=== PATIENT | male | born 1950 | race Caucasian/White ===

== ENCOUNTER 2019-06-19 20:23 | Emergency (ER) | payer MEDICARE, OTHER, SELFPAY ==
[2019-06-19 20:30] VITALS: BP 153/85; PULSE 90; RESP 16; TEMP 36.6; O2SAT 95; BMI 27.0
--- NOTE | 2019-06-19 20:45 | PC.NURSE ---
Pt complaining of hiccups. Denies any chest pain, abd pain or any other symptoms. NAD. Will continue to monitor.
--- NOTE | 2019-06-19 20:51 | ED.ABDPAIN ---
HPI - Abdominal Pain General Chief Complaint: Abdominal Pain Stated Complaint: hiccups for 24hrs Time Seen by Provider: 06/19/19 20:51 Source: patient Mode of arrival: ambulatory Limitations: no limitations History of Present Illness HPI narrative: The patient is in the ER complaining of 24 hr of hiccups. He mimi are happening 7-10 per minute. He has no associated sore throat, chest pain, or history of GERD. He has no chronic GI issues. He has not experienced nausea, vomiting, diarrhea or constipation. His appetite has been normal. His oral intake has been normal. He has no urinary complaints. He has a prior history of our RIH repair. He has a prior history of hemorrhoid surgery. He has no other GI issues in the past. Related Data Home Medications Medication Instructions Recorded Confirmed olmesartan 40 mg tablet 20 mg PO DAILY tab 11/28/18 11/28/18 Testosterone 10 % TOP .COMPLEX 12/01/18 12/01/18 Previous Rx's Medication Instructions Recorded lorazepam [Ativan] 1 mg PO TID PRN #10 tab 06/20/19 pantoprazole [Protonix] 40 mg PO BEDTIME #30 each 06/20/19 Allergies Allergy/AdvReac Type Severity Reaction Status Date / Time Penicillins Allergy Intermediate Hives Verified 06/19/19 20:33 Review of Systems Review of Systems ROS Unobtainable: All systems reviewed & are unremarkable except as noted in HPI and below Constitutional Denies chills, Denies fever(s), Denies lethargy and Denies weakness ENT Ears, Nose, Mouth, and Throat: Denies dizziness, Denies mouth pain, Denies neck pain and Denies sore throat Cardiovascular Denies chest pain and Denies dyspnea Respiratory Denies cough and Denies dyspnea Gastrointestinal Gastrointestinal: Reports as per HPI, Denies abdominal pain, Denies constipation, Denies cramping, Denies dyspepsia, Denies heartburn and Denies diarrhea Genitourinary Denies dysuria Musculoskeletal Denies neck pain Integumentary/Breasts Denies rash Neurologic Denies dizziness and Denies weakness [facility] Medical History (Updated 06/20/19 @ 01:[address] MD) Asthma (Chronic ~1955) Hypertension (Chronic ~2009) Low testosterone (Chronic ~2010) Seasonal allergies (Chronic ~1955) Chicken pox (Resolved) Measles (Resolved) Mumps (Resolved) Surgical History (Updated 06/20/19 @ 01:[address] MD) History of right inguinal hernia repair (Acute) Anesthesia (Resolved) History of hemorrhoidectomy (Resolved ~2015) History of knee surgery (Resolved ~2014) Family History (Updated 12/28/18 @ 18:53 by Ese Rodriguez) Mother Heart disease Brother History of amputation Social History Smoking Status: Never smoker alcohol intake: current (Rare) Family History (Updated 12/28/18 @ 18:53 by Ese Rodriguez) Mother Heart disease Brother History of amputation Social History Smoking Status: Never smoker alcohol intake: current (Rare) Exam Initial Vital Signs Initial Vital Signs: Vital Signs Temperature 97.8 F 06/19/19 20:30 Pulse Rate 90 06/19/19 20:30 Respiratory Rate 16 06/19/19 20:30 Blood Pressure 153/85 H 06/19/19 20:30 Pulse Oximetry 95 06/19/19 20:30 Const General: cooperative and well developed Nutritional Appearance: well nourished Orientation: alert, awake and oriented x3 HENMT Head: normocephalic and atraumatic Mouth: oral mucosae normal Eyes Pupils: PERRL EOM: EOM intact bilaterally Neck Neck: No lymphadenopathy Resp Effort & Inspection: normal respiratory effort and able to speak in complete sentences Auscultation: clear to auscultation bilaterally Cardio Rate: regular rate Rhythm: regular rhythm Heart Sounds: S1 normal, S2 normal, no murmurs and no rubs Pulses: normal peripheral pulses GI Inspection: non-distended Palpation: soft, no hepatosplenomegaly, No guarding and No tender Auscultation: normal bowel sounds Other: Small umbilical hernia that will not reduce. Course Course Narrative: Abdominal CT showed a fatty umbilical hernia. No bowel incarceration/obstruction. The patient was given Ativan for the hiccups. He had about 90 min of rest without hiccups. He was given Maalox prior to discharge. My initial intent was to give him Ativan for as needed management who comes, after given him Reglan and Maalox. Once he was wake the comes return. I started over, given him IV Protonix. He is allowed to rest. After couple of hours the hiccups again resolved. He was then awake, waiting his to pick him up. He was given coffee. We just talked about decreasing coffee consumption. He generally drinks 2 cups in the morning. He once again developed hiccups, at the moment he was completing the coffee. I had him drink water as he is walking around, again diminishing the hiccups. He will be discharged on Protonix. Orders Ordered: ED Orders 06/19/19 21:43 CT abdomen pelvis w con Stat 06/19/19 22:05 Complete Blood Count AUTO DIFF Stat Comprehensive Metabolic Panel Stat Lipase Stat Discontinued Medications Al Hydrox/Mg Hydrox/Simethicone (Maalox Plus) 30 ml PO NOW ONE Stop: 06/20/19 01:30 Last Admin: 06/20/19 01:52 Dose: 30 ml Diphenhydramine HCl (Benadryl) 25 mg IV NOW ONE Stop: 06/19/19 21:43 Last Admin: 06/19/19 22:10 Dose: 25 mg Sodium Chloride (Normal Saline 0.9%) 1,000 mls @ 150 mls/hr IV CONT ELI Last Infusion: 06/20/19 03:59 Dose: 0 mls/hr Infusion: 06/20/19 03:56 Dose: 1,000 mls/hr Admin: 06/19/19 22:09 Dose: 150 mls/hr Lorazepam (Ativan) 2 mg IV NOW ONE Stop: 06/19/19 23:59 Last Admin: 06/20/19 00:17 Dose: 2 mg Metoclopramide HCl (Reglan) 10 mg IV NOW ONE Stop: 06/19/19 21:43 Last Admin: 06/19/19 22:10 Dose: 10 mg Pantoprazole Sodium (Protonix) 40 mg IV NOW ONE Stop: 06/20/19 02:12 Last Admin: 06/20/19 02:26 Dose: 40 mg Vital Signs - 8 hr 06/19/19 22:14 06/20/19 00:24 06/20/19 04:49 Pulse Rate 88 80 86 Respiratory Rate 18 20 16 Blood Pressure Blood Pressure [Right Arm] 142/77 H 142/77 H 148/75 H Pulse Oximetry 98 98 98 06/20/19 04:56 Pulse Rate 66 Respiratory Rate 14 Blood Pressure 136/77 Blood Pressure [Right Arm] Pulse Oximetry 98 MDM - Abdominal Pain Lab Data Attestation: I reviewed the patient's lab results. Result diagrams: 06/19/19 22:05 06/19/19 22:05 Lab Results 06/19/19 06/19/19 Range/Units 22:05 22:05 WBC 7.9 (4.5-11.0) X10^3/uL RBC 6.73 H (4.5-5.9) X10^6/uL Hgb 13.7 (13.5-17.5) g/dL Hct 44.6 (41-53) % MCV 66.3 L (80-100) fL MCH 20.4 L (26-34) PG MCHC 30.7 (30-36) % RDW 19.6 H (11.6-14.8) % Plt Count 265 (150-400) X10^3/uL Neut % (Auto) 55.3 (50-75) % Lymph % (Auto) 29.2 (25-40) % Nuckolls % (Auto) 9.5 (3-14) % Eos % (Auto) 5.3 H (2-4) % Baso % (Auto) 0.7 (0-2) % Neut # (Auto) 4300 (5584-8095) /uL Lymph # (Auto) 2300 (5444-2055) /uL [place]olls # (Auto) 700 (0-900) /uL Eos # (Auto) 400 (0-450) /uL Baso # (Auto) 100 (0-100) /uL RBC Morphology See below Anisocytosis 2+ H Microcytosis 2+ H Sodium 138 (137-145) mmol/L Potassium 3.9 (3.4-5.1) mmol/L Chloride 103 (98-107) mmol/L Carbon Dioxide 28 (22-32) mmol/L BUN 11 (9-20) mg/dL Creatinine 1.10 (0.66-1.25) mg/dL Estimated GFR > 60.0 (>60) mL/min BUN/Creatinine Ratio 10.0 (6-22) Glucose 86 (80-110) mg/dL Calcium 10.4 H (8.4-10.2) mg/dL Total Bilirubin 0.4 (0.2-1.3) mg/dL AST 37 (17-59) IU/L ALT 51 (21-72) IU/L Alkaline Phosphatase 55 (38-126) U/L Total Protein 7.1 (6.3-8.2) g/dL Albumin 4.2 (3.5-5.0) g/dL Globulin 2.9 (1.7-4.1) g/dL Albumin/Globulin Ratio 1.4 (1.0-2.8) Lipase 211 (23-300) U/L Imaging Data Abdomen/pelvis CT:: Radiologist's impression: Small periumbilical hernia containing only fat. No other significant findings. Discharge Plan Departure Patient Disposition: Home Clinical Impression: Hiccup, Hernia, umbilical Discharge Date/Time: 06/20/19 05:15 Interventions: ED Discharge Assessment Last Done: 06/20/19 04:56 Instructions: Hiccups, DI for Gastroesophageal Reflux Disease (GERD), Ventral Hernia Activity Restrictions/Additional Instructions: Continue with a regular diet. In your clinical situation, the hiccups are probably related to acid reflux. I will give instructions for GERD this morning. Start Protonix 40 mg daily. Follow-up with your doctor in 1-2 weeks to evaluate concerns for esophagus or stomach problems. Return here if you have a relapse of recurrent hiccups. I would recommend following up with surgery to evaluate the hernia, I will give you contact information. Prescriptions: New lorazepam [Ativan] 1 mg tablet 1 mg PO TID PRN (Reason: agitation) Qty: 10 RF: 0 Protonix [address] for susp in packet 40 mg PO BEDTIME Qty: 30 RF: 0 No Action olmesartan [Benicar] 40 mg tablet 20 mg PO DAILY RF: 0 Testosterone 10 % TOP .COMPLEX RF: 0 Referrals: Mazin Santos MD [Physician] -
--- NOTE | 2019-06-19 21:43 | DI.CT.S_ITS ---
PROCEDURE: CT ABDOMEN PELVIS W CON INDICATIONS: Abd pain. Possible incarcerated imbilical hernia. TECHNIQUE: After the administration of oral and intravenous contrast, 5 mm thick sections acquired from the diaphragms to the symphysis. 5 mm thick coronal and sagittal reformats were performed. For radiation dose reduction, the following was used: automated exposure control, adjustment of mA and/or kV according to patient size. COMPARISON: None. FINDINGS: Image quality: Excellent. ABDOMEN: Lung bases: Lung bases are clear. Heart size is normal. Solid organs: Liver is normal in size and enhancement. Gallbladder is unremarkable. Biliary system is non-dilated. Pancreas enhances normally. Spleen is normal in size and enhancement. No adrenal nodules. Kidneys are normal in size and enhancement, without hydronephrosis. Peritoneum and bowel: Stomach, small bowel, and colon loops are normal in caliber and wall thickness. The appendix is not visualized; however surgical clips are present in the region of the cecum in the lower quadrant suggesting prior appendectomy. No free fluid or air. Nodes and vessels: No retroperitoneal or mesenteric adenopathy. Aorta and inferior vena cava are normal in caliber. Miscellaneous: There is a 2.5 cm fat-containing umbilical hernia. PELVIS: Genitourinary: Bladder wall thickness is normal. Miscellaneous: No inguinal adenopathy. There is a moderate left fat-containing inguinal hernia. No bowel herniation. Bones: No suspicious bony lesions. No vertebral body compression fractures. IMPRESSION: 1. No acute intra-abdominal findings. Probable prior appendectomy. 2. Small fat-containing ventral hernia and moderate left fat-containing inguinal hernia. No findings to suggest bowel herniation at this time. These findings are concordant with the overnight interpretation. Dictated by: Leah Eaton M.D. on 06/20/2019 at 7:07 Approved by: Leah Eaton M.D. on 06/20/2019 at 7:12
[2019-06-19] MEDS: SODIUM CHLORIDE 0.9% 1,000 ML 150 ML IV (22:09)
[2019-06-19] MEDS: METOCLOPRAMIDE 10 MG/2 ML INJ IV (22:10)
[2019-06-19] MEDS: diphenhydrAMINE 50 MG/ML VIAL 25 MG IV (22:10)
[2019-06-19 22:14] VITALS: BP 142/77; PULSE 88; RESP 18; O2SAT 98
[2019-06-19 22:18] LABS: Add Manual Diff / Slide Review SLIDE REVIEW; Basophils Absolute Auto 100 /uL (0-100); Basophils Percent Auto 0.7 % (0-2); Eosinophils Absolute Auto 400 /uL (0-450); Eosinophils Percent Auto 5.3 % (2-4); Hematocrit 44.6 % (41-53); Hemoglobin 13.7 g/dL (13.5-17.5); Lymphocytes Absolute Auto 2300 /uL (1100-4500); Lymphocytes Percent Auto 29.2 % (25-40); Mean Corpuscular HGB Conc 30.7 % (30-36); Mean Corpuscular Hemoglobin 20.4 PG (26-34); Mean Corpuscular Volume 66.3 fL (80-100); Monocytes Absolute Auto 700 /uL (0-900); Monocytes Percent Auto 9.5 % (3-14); Neutrophils Absolute Auto 4300 /uL (1500-7000); Neutrophils Percent Auto 55.3 % (50-75); Platelet Count 265 X10^3/uL (150-400); Red Blood Cell Count 6.73 X10^6/uL (4.5-5.9); Red Cell Distribution Width 19.6 % (11.6-14.8); White Blood Cell Count 7.9 X10^3/uL (4.5-11.0)
[2019-06-19 22:25] LABS: Alanine Aminotransferase 51 IU/L (21-72); Albumin 4.2 g/dL (3.5-5.0); Albumin Globulin Ratio 1.4 (1.0-2.8); Alkaline Phosphatase 55 U/L (38-126); Aspartate Aminotransferase 37 IU/L (17-59); Bilirubin Total 0.4 mg/dL (0.2-1.3); Blood Urea Nitrogen 11 mg/dL (9-20); Calcium 10.4 mg/dL (8.4-10.2); Carbon Dioxide 28 mmol/L (22-32); Chloride 103 mmol/L (98-107); Estimated Glomerular Filt Rate > 60.0 mL/min (>60); Globulin 2.9 g/dL (1.7-4.1); Glucose 86 mg/dL (80-110); HEMOLYSIS < 15 (0-50); Lipase 211 U/L (23-300); Potassium 3.9 mmol/L (3.4-5.1); Sodium 138 mmol/L (137-145); Total Protein 7.1 g/dL (6.3-8.2)
[2019-06-19 22:54] LABS: Anisocytosis 2+
[2019-06-19 22:55] LABS: Microcytosis 2+
[2019-06-20] MEDS: LORazepam 2 MG/ML INJ IV (00:17)
[2019-06-20 00:24] VITALS: BP 142/77; PULSE 80; RESP 20; O2SAT 98
--- NOTE | 2019-06-20 01:12 | PC.NURSE ---
Pt resting comfortably at this time. NAD. hiccups have subsided. Will continue to monitor.
[2019-06-20] MEDS: MAG HYDROX/ALUM/SIMETH 30 ML UDC PO (01:52)
--- NOTE | 2019-06-20 01:52 | PC.NURSE ---
Pt awake at this time. hiccups returned. MD notified. medicated. Will continue to monitor.
--- NOTE | 2019-06-20 02:02 | PC.NURSE ---
Pt up for d/c but states he will not be d/c until hiccups stop. Requested to speak to . notified.
[2019-06-20] MEDS: PANTOPRAZOLE 40 MG VIAL IV (02:26)
--- NOTE | 2019-06-20 03:14 | PC.NURSE ---
Sleeping comfortably at this time. Awaiting on pt for d/c. MD aware. Will continue to monitor.
--- NOTE | 2019-06-20 03:57 | PC.NURSE ---
NAd. Hiccups subsided at this time. Pt drinking coffee. Awake, Alert and Oriented. NAD. Awaiting on Md's disposition. Will continue to monitor.
[2019-06-20 04:49] VITALS: BP 148/75; PULSE 86; RESP 16; O2SAT 98
[2019-06-20 04:56] VITALS: BP 136/77; PULSE 66; RESP 14; O2SAT 98
--- NOTE | 2019-06-20 05:09 | PC.NURSE ---
AISHWARYA. pt indicated having some hiccups again after drinking coffee. Education given on acid reflux and what foods to avoid that cause reflux. Verbalized understanding and states he is ready to go home. Spouse contacted. Awaiting on her arrival for d/c. Pt ambulating around the ED.
== END 2019-06-20 05:15 | disposition home or self-care (01) ==
PROVIDERS: Emergency Provider Emergency Medicine
DX: R06.6 Hiccough (principal); K42.9 Umbilical hernia without obstruction or gangrene
CPT/HCPCS: 36591; 74177; 80053; 83690; 85025; 96361; 96374; 96375; 99283; 99285; C9113; J1200; J2060; J2765

== ENCOUNTER → 2019-07-28 09:23 | Outpatient (CLI) | payer MEDICARE, OTHER, SELFPAY ==
[2019-07-28 14:46] LABS: Urine N gonorrhoeae NOT DETECTED
[2019-07-28 14:53] LABS: Urine Chlamydia NOT DETECTED
== END ==
PROVIDERS: PCP Family Medicine; Visit Provider Nurse Practitioner
DX: N50.89 Other specified disorders of the male genital organs (principal)
CPT/HCPCS: 87491; 87591

== ENCOUNTER → 2019-07-30 07:39 | Outpatient (CLI) | payer MEDICARE, OTHER, SELFPAY ==
--- NOTE | 2019-07-30 07:41 | DI.US.S_ITS ---
PROCEDURE: US SCROTUM INDICATIONS: epididymitis, left. Additional history: Right testicular and scrotal pain for 4 days duration. Improving with antibiotics. TECHNIQUE: Real-time scanning was performed of the scrotum and testicles, with image documentation. Color and pulse Doppler interrogation was performed of both testicles. COMPARISON: CT abdomen pelvis 06/19/2019. FINDINGS: Right: Testicle is normal in size at 4.4 x 2.2 x 1.9 cm, and heterogeneous in echotexture. Punctate parenchymal calcification. Epididymis is normal in overall size and morphology. A few small epididymal head cysts, the largest measuring 4 mm. No hydrocele. Moderate varicoceles. Overlying scrotal skin is normal in thickness. Left: Testicle is normal in size at 3.2 x 2.8 x 2 cm, and heterogeneous in echotexture. Punctate parenchymal calcification. Epididymis is normal in size. Focal echogenic in the epididymal tail measuring at 1.2 x 0.7 x 0.4 cm. There is surrounding increased vascularity. Trace hydrocele. Moderate varicoceles. Overlying scrotal skin is normal in thickness. Fat-containing left inguinal hernia is mostly reducible. Doppler: Color and pulse Doppler demonstrate symmetric arterial flow in both testicles with loss of end-diastolic flow. No testicular torsion. IMPRESSION: 1. Focal area of increased echogenicity in the left epididymal tail with increased vascularity is most suggestive of epididymitis. Trace left hydrocele. 2. Moderate bilateral varicoceles. 3. No testicular torsion. Incidental small right epididymal head cysts. Dictated by: Gunnar Russ M.D. on 07/30/2019 at 9:19 Approved by: Gunnar Russ M.D. on 07/30/2019 at 9:34
== END ==
PROVIDERS: PCP Nurse Practitioner; Visit Provider Nurse Practitioner
DX: N45.1 Epididymitis (principal); N50.82 Scrotal pain; I86.1 Scrotal varices; N50.3 Cyst of epididymis
CPT/HCPCS: 76870

== ENCOUNTER → 2020-08-31 06:59 | Outpatient (CLI) | payer MEDICARE, SELFPAY ==
[2020-08-31 09:59] LABS: Alanine Aminotransferase 79 IU/L (<50); Albumin 4.5 g/dL (3.5-5.0); Albumin Globulin Ratio 1.6 (1.0-2.8); Alkaline Phosphatase 66 U/L (38-126); Aspartate Aminotransferase 61 IU/L (17-59); BUN Creatinine Ratio 10.4 (6-22); Bilirubin Total 1.3 mg/dL (0.2-1.3); Blood Urea Nitrogen 12 mg/dL (9-20); Calcium 9.8 mg/dL (8.4-10.2); Carbon Dioxide 29 mmol/L (22-32); Chloride 102 mmol/L (98-107); Cholesterol 221 mg/dL (140-199); Estimated Glomerular Filt Rate > 60.0 mL/min (>60); Globulin 2.9 g/dL (1.7-4.1); Glucose 78 mg/dL (80-110); HDL Cholesterol 45 mg/dL (40-60); LDL Cholesterol Calculated 139 mg/dL (<100); Potassium 4.5 mmol/L (3.4-5.1); Sodium 138 mmol/L (137-145); Total Protein 7.4 g/dL (6.3-8.2); Triglycerides 183 mg/dL (35-150)
[2020-08-31 10:24] LABS: Free T3, Triiodothyronine Free 4.19 pg/mL (2.77-5.27); Free T4, Direct Thyroxine 0.97 ng/dL (0.78-2.19)
[2020-08-31 10:37] LABS: Thyroid Stimulating Hormone 5.84 uIU/mL (0.47-4.68)
[2020-09-01 16:14] LABS: HEMOLYSIS 19 (0-50)
[2020-09-09 07:09] LABS: Testosterone % Fr + Wkly bound 48.4 % (9.0-46.0); Testosterone Fr+Wkly bound 470.8 ng/dL (40.0-250.0); Testosterone, Total 972.8 ng/dL (264.0-916.0)
== END ==
PROVIDERS: PCP Nurse Practitioner; Referring Provider Nurse Practitioner; Visit Provider Nurse Practitioner
DX: E78.5 Hyperlipidemia, unspecified (principal); I10 Essential (primary) hypertension; I25.10 Atherosclerotic heart disease of native coronary artery without angina pectoris; Z79.899 Other long term (current) drug therapy; Z95.5 Presence of coronary angioplasty implant and graft; N52.9 Male erectile dysfunction, unspecified; R79.89 Other specified abnormal findings of blood chemistry; Z12.5 Encounter for screening for malignant neoplasm of prostate
CPT/HCPCS: 36415; 80053; 80061; 84153; 84403; 84439; 84443; 84481

== ENCOUNTER → 2020-09-19 11:21 | Outpatient (CLI) | payer MEDICARE, SELFPAY ==
[2020-09-19 12:03] LABS: Alanine Aminotransferase 72 IU/L (<50); Albumin 4.4 g/dL (3.5-5.0); Albumin Globulin Ratio 1.5 (1.0-2.8); Alkaline Phosphatase 66 U/L (38-126); Aspartate Aminotransferase 50 IU/L (17-59); BUN Creatinine Ratio 14.7 (6-22); Blood Urea Nitrogen 15 mg/dL (9-20); Calcium 9.7 mg/dL (8.4-10.2); Carbon Dioxide 25 mmol/L (22-32); Chloride 105 mmol/L (98-107); Cholesterol 217 mg/dL (140-199); Estimated Glomerular Filt Rate > 60.0 mL/min (>60); Glucose 138 mg/dL (80-110); HDL Cholesterol 37 mg/dL (40-60); HEMOLYSIS 21 (0-50); LDL Cholesterol Calculated 135 mg/dL (<100); Potassium 4.1 mmol/L (3.4-5.1); Sodium 136 mmol/L (137-145); Total Protein 7.4 g/dL (6.3-8.2); Triglycerides 225 mg/dL (35-150)
--- NOTE | 2020-09-19 12:47 | DI.CT.S_ITS ---
PROCEDURE: CT ANGIO HEAD INDICATIONS: Intermittent loss of vision, visual disturbance TECHNIQUE: Precontrast 4.5 mm thick angled axial sections acquired from the foramen magnum to the vertex. After the administration of intravenous contrast, 1 mm thick sections acquired through the [place]. Postcontrast 4.5 mm thick sections then re-acquired from the foramen magnum to the vertex. 10 mm thick [id number] (MIP) reformats were acquired of the central intracranial vasculature. For radiation dose reduction, the following was used: automated exposure control, adjustment of mA and/or kV according to patient size. COMPARISON: None. FINDINGS: Image quality: There is moderate venous contamination seen. Anterior circulation: Intracranial internal carotid arteries are normal in size and flow. The flow within the paired anterior cerebral arteries is normal and symmetric. The flow within the middle cerebral arteries is normal and symmetric. The anterior communicating artery is seen. No aneurysms are seen. Posterior circulation: The left vertebral artery is dominant to the right. There are high-grade before stenosis seen, with subtotal narrowings seen on both sides. There is a normal appearing basilar artery. Flow within the posterior cerebral arteries is normal and symmetric. No aneurysms are seen. CSF spaces: Ventricles are normal in size and shape. Basal cisterns are patent. No extra-axial fluid collections. Brain: No midline shift. No intracranial bleeds or masses. [place]-white matter interface appears intact. Brain parenchymal volume loss is seen. Chronic small vessel ischemic changes are seen. Skull and face: Calvarium and facial bones appear intact, without suspicious lesions. Sinuses: Visualized sinuses and mastoids are clear. 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 If there is strong clinical suspicion for an acute stroke, please consider an MRI for further evaluation, as it is more sensitive (assuming that there is no contraindication to MRI). Dictated by: Chuck Mckay M.D. on 09/19/2020 at 11:56 Approved by: Chuck Mckay M.D. on 09/19/2020 at 11:59
== END ==
PROVIDERS: PCP Nurse Practitioner; Referring Provider Nurse Practitioner; Visit Provider Nurse Practitioner
DX: I65.03 Occlusion and stenosis of bilateral vertebral arteries (principal); H54.3 Unqualified visual loss, both eyes; H53.19 Other subjective visual disturbances; E78.5 Hyperlipidemia, unspecified; I10 Essential (primary) hypertension; Z79.899 Other long term (current) drug therapy
CPT/HCPCS: 36415; 70496; 80053; 80061; Q9967

== ENCOUNTER 2020-11-09 10:07 | Emergency (ER) | payer MEDICARE, SELFPAY ==
[2020-11-09] VITALS (15 sets, daily range): BP systolic 145–186; BP diastolic 77–101; PULSE 77–93; RESP 8–34; TEMP 36.9; O2SAT 93–97; BMI 27.7
--- NOTE | 2020-11-09 10:09 | DI.RAD.S_ITS ---
PROCEDURE: XR CHEST 1V INDICATIONS: chest pain TECHNIQUE: One view of the chest was acquired. COMPARISON: None. FINDINGS: Surgical changes and devices: None. Lungs and pleura: Cannot exclude medial right apical lung mass versus superimposition of vessels and 2 ribs. No airspace consolidation. Left basilar bronchiectasis. No pleural effusions or pneumothorax. Mediastinum: Mediastinal contours appear normal. Mild cardiomegaly. Bones and chest wall: No suspicious bony lesions. Overlying soft tissues appear unremarkable. IMPRESSION: 1. Mild cardiomegaly. 2. Question medial right apical lung mass versus superimposition of vascular structures and the anterior right 1st rib and posterior right 4th rib. Comment: Recommend noncontrast chest CT to exclude a medial right apical lung mass. Comment: Findings were discussed with Dr. Tang at the time of study dictation. Dictated by: Jluis Retana M.D. on 11/09/2020 at 10:55 Approved by: Jluis Retana M.D. on 11/09/2020 at 11:01
[2020-11-09 11:02] LABS: Add Manual Diff / Slide Review NO; Basophils Absolute Auto 100 /uL (0-100); Basophils Percent Auto 1.2 % (0-2); Eosinophils Absolute Auto 400 /uL (0-450); Eosinophils Percent Auto 5.3 % (2-4); Hematocrit 56.7 % (41-53); Hemoglobin 19.5 g/dL (13.5-17.5); Lymphocytes Absolute Auto 1800 /uL (1100-4500); Lymphocytes Percent Auto 23.3 % (25-40); Mean Corpuscular HGB Conc 34.4 % (30-36); Mean Corpuscular Hemoglobin 30.5 PG (26-34); Mean Corpuscular Volume 88.5 fL (80-100); Monocytes Absolute Auto 600 /uL (0-900); Neutrophils Absolute Auto 4900 /uL (1500-7000); Neutrophils Percent Auto 62.2 % (50-75); Platelet Count 209 X10^3/uL (150-400); Red Blood Cell Count 6.41 X10^6/uL (4.5-5.9); Red Cell Distribution Width 15.2 % (11.6-14.8); White Blood Cell Count 7.8 X10^3/uL (4.5-11.0)
[2020-11-09 11:06] LABS: Alanine Aminotransferase 72 IU/L (<50); Albumin 4.3 g/dL (3.5-5.0); Albumin Globulin Ratio 1.5 (1.0-2.8); Alkaline Phosphatase 52 U/L (38-126); Aspartate Aminotransferase 55 IU/L (17-59); BUN Creatinine Ratio 16.2 (6-22); Bilirubin Total 0.7 mg/dL (0.2-1.3); Blood Urea Nitrogen 16 mg/dL (9-20); Calcium 9.9 mg/dL (8.4-10.2); Carbon Dioxide 26 mmol/L (22-32); Chloride 105 mmol/L (98-107); Creatine Kinase 268 U/L (55-170); Estimated Glomerular Filt Rate > 60.0 mL/min (>60); Globulin 2.8 g/dL (1.7-4.1); Glucose 95 mg/dL (80-110); HEMOLYSIS 41 (0-50); Lipase 271 U/L (23-300); Potassium 4.3 mmol/L (3.4-5.1); Sodium 136 mmol/L (137-145); Total Protein 7.1 g/dL (6.3-8.2)
[2020-11-09 11:12] LABS: Prothrombin Time 10.9 SECONDS (10.1-12.7)
[2020-11-09 11:15] LABS: PTT Partial Thromboplastin Tim 33 SECONDS (26.4-36.2)
[2020-11-09 11:21] LABS: CKMB % Relative Index 1.9 % (1.5-5.0); Creatine Kinase MB 5.07 ng/mL (<2.37)
--- NOTE | 2020-11-09 11:38 | ED.CHESTPAIN ---
HPI - Chest Pain General Chief Complaint: Chest Pain Stated Complaint: May have had a mild heart attack last night Time Seen by Provider: 11/09/20 10:13 Source: patient Mode of arrival: Ambulatory Limitations: no limitations History of Present Illness HPI narrative: Patient is a 70-year-old male who arrives the emergency department this morning for evaluation bilateral chest pain radiating to his right shoulder. He states the symptoms happened last evening. He was sitting at the time. He stated that it was a fairly sudden onset and lasted approximately 5 minutes and then resolved. Cannot correlate any specific things that make it better or worse such as breathing or palpation. He states that those symptoms completely resolved however he continued to have some right sided chest pain throughout the night and into this morning. He stated that that had completely resolved by the time he arrived here in the emergency department. He does have a history of coronary artery disease. Has had 4 heart stents placed in the past. This was 20 years ago. He states that he was an avid runner and was having left-sided arm pain while he was running and after workup resulted in stent placement. He has had no issues since then. He does not currently see a buyer liaison. Related Data Home Medications Medication Instructions Recorded Confirmed olmesartan 20 mg tablet 10 mg PO DAILY tab 08/30/20 09/19/20 Previous Rx's Medication Instructions Recorded Testosterone (A) 20% gel 20 % TOP .COMPLEX #1 vial 09/19/20 fenofibrate 54 mg tablet 54 mg PO DAILY #90 tab 09/19/20 Allergies Allergy/AdvReac Type Severity Reaction Status Date / Time Penicillins Allergy Intermediate Hives Verified 09/19/20 09:31 Review of Systems Constitutional Constitutional: Denies fever(s) and Denies headache(s) ENT Ears, Nose, Mouth, and Throat: Denies vertigo, Denies dizziness and Denies headache(s) Cardiovascular Cardiovascular: Reports chest pain and Denies dyspnea Respiratory Respiratory: Denies cough and Denies dyspnea Gastrointestinal Gastrointestinal: Denies abdominal pain, Denies change in bowel habits, Denies nausea and Denies vomiting Genitourinary Genitourinary: Denies dysuria Genitourinary: Denies dysuria Musculoskeletal Musculoskeletal: Denies arthralgias and Denies myalgias Integumentary/Breasts Skin/Breast: Denies lesions and Denies rash Neurologic Neurologic: Denies vertigo, Denies dizziness and Denies headache(s) Hematologic/Lymphatic Hematologic/Lymphatic: Denies easy bleeding and Denies easy bruising Allergic/Immunologic Allergic/Immunologic: Denies urticaria Patient History Medical History Asthma (~1955) Chicken pox Daily consumption of alcohol Emphysema of lung Erectile dysfunction Hypercholesterolemia Hyperlipemia Hypertension (~2009) Hypogonadism Low testosterone (~2010) Measles Mumps Seasonal allergies (~1955) Surgical History Anesthesia H/O angioplasty History of appendectomy History of hemorrhoidectomy (~2015) History of knee surgery (~2014) History of right inguinal hernia repair Family History Mother Heart disease Brother History of amputation Social History Smoking Status: Never smoker alcohol intake: current (Rare) Smoking Status: Never smoker alcohol intake frequency: holidays/special occasions only Exam Initial Vital Signs Initial Vital Signs: Vital Signs Temperature 98.4 F 11/09/20 10:29 Pulse Rate 93 H 11/09/20 10:29 Respiratory Rate 16 11/09/20 10:29 Blood Pressure 182/101 H 11/09/20 10:29 Pulse Oximetry 97 11/09/20 10:29 Const General: cooperative and comfortable Limitations: mental status not altered HENMT Head: normal to inspection and normocephalic Resp Effort & Inspection: normal respiratory effort Auscultation: clear to auscultation bilaterally Cardio Rate: regular rate Rhythm: regular rhythm GI Inspection: non-distended Palpation: soft, No firm and No tender Skin Lesions: no lesions Rashes: no rashes Neuro General: patient alert and patient awake Cognition: normal cognition Speech: speech normal Extrem General: normal to inspection and capillary refill normal Psych Appearance: grossly normal and well kempt Scores GCS Madelia coma scale eye opening: Spontaneous Livia coma scale verbal response: Orientated Livia coma scale motor response: Obey commands Livia coma scale total score: 15 Course Orders Ordered: ED Orders 11/09/20 10:09 XR chest 1V Stat EKG-12 Lead Stat 11/09/20 10:45 Complete Blood Count AUTO DIFF Stat Comprehensive Metabolic Panel Stat Lipase Stat Partial Thromboplastin Time Stat Prothrombin Time INR Stat Troponin & CK Cardiac Panel Stat 11/09/20 11:38 CT chest wo con Stat 11/09/20 13:48 Troponin & CK Cardiac Panel Stat 11/09/20 14:40 COVID19 Stat Heparin Sodium/Dextrose (Heparin Drip) 25,000 unit in 500 mls @ 20 mls/hr IV CONT ELI; Protocol Last Admin: 11/09/20 15:15 Dose: 1,000 units/hr, 20 mls/hr Documented by: Discontinued Medications Aspirin (Aspirin 81 Mg Chew Tab) 324 mg PO NOW ONE Stop: 11/09/20 14:46 Last Admin: 11/09/20 15:14 Dose: 324 mg Documented by: Heparin Sodium (Porcine) (Heparin 5,000 Unit/Ml Vial) 5,000 unit IV NOW ONE Stop: 11/09/20 14:46 Last Admin: 11/09/20 15:15 Dose: 5,000 unit Documented by: Vital Signs Vital signs: Vital Signs - 8 hr 11/09/20 10:29 11/09/20 10:31 11/09/20 10:50 Temperature 98.4 F Pulse Rate 93 H 88 82 Respiratory Rate 16 12 14 Blood Pressure 182/101 H 162/95 H Pulse Oximetry 97 97 97 11/09/20 11:00 11/09/20 11:30 11/09/20 12:00 Temperature Pulse Rate 80 82 77 Respiratory Rate 18 21 Blood Pressure 158/87 H 169/100 H 151/87 H Pulse Oximetry 95 96 94 11/09/20 12:18 11/09/20 12:30 11/09/20 13:00 Temperature Pulse Rate 89 77 77 Respiratory Rate 15 18 Blood Pressure 149/88 H 150/91 H 145/77 H Pulse Oximetry 97 96 93 11/09/20 13:30 11/09/20 14:00 11/09/20 14:30 Temperature Pulse Rate 77 78 77 Respiratory Rate 19 34 H 8 L Blood Pressure 149/83 H 169/94 H 156/87 H Pulse Oximetry 95 97 95 11/09/20 15:00 Temperature Pulse Rate 84 Respiratory Rate Blood Pressure 186/91 H Pulse Oximetry 96 MDM - Chest Pain Lab Data Result diagrams: 11/09/20 10:45 11/09/20 10:45 Labs: Lab Results 11/09/20 11/09/2020 Range/Units 10:45 10:45 10:45 WBC 7.8 (4.5-11.0) X10^3/uL RBC 6.41 H (4.5-5.9) X10^6/uL Hgb 19.5 H (13.5-17.5) g/dL Hct 56.7 H (41-53) % MCV 88.5 (80-100) fL MCH 30.5 (26-34) PG MCHC 34.4 (30-36) % RDW 15.2 H (11.6-14.8) % Plt Count 209 (150-400) X10^3/uL Neut % (Auto) 62.2 (50-75) % Lymph % (Auto) 23.3 L (25-40) % [place] % (Auto) 8.0 (3-14) % Eos % (Auto) 5.3 H (2-4) % Baso % (Auto) 1.2 (0-2) % Neut # (Auto) 4900 (3480-4440) /uL Lymph # (Auto) 1800 (7214-2318) /uL [place] # (Auto) 600 (0-900) /uL Eos # (Auto) 400 (0-450) /uL Baso # (Auto) 100 (0-100) /uL PT 10.9 (10.1-12.7) SECONDS INR 1.0 (0.9-1.3) APTT 33 (26.4-36.2) SECONDS Sodium 136 L (137-145) mmol/L Potassium 4.3 (3.4-5.1) mmol/L Chloride 105 (98-107) mmol/L Carbon Dioxide 26 (22-32) mmol/L BUN 16 (9-20) mg/dL Creatinine 0.99 (0.66-1.25) mg/dL Estimated GFR > 60.0 (>60) mL/min BUN/Creatinine Ratio 16.2 (6-22) Glucose 95 (80-110) mg/dL Calcium 9.9 (8.4-10.2) mg/dL Total Bilirubin 0.7 (0.2-1.3) mg/dL AST 55 (17-59) IU/L ALT 72 H (<50) IU/L Alkaline Phosphatase 52 (38-126) U/L Total Creatine Kinase 268 H (55-170) U/L CK-MB (CK-2) 5.07 H (<2.37) ng/mL CK-MB (CK-2) Rel Index 1.9 (1.5-5.0) % Troponin I 0.233 H* (0.01-0.034) ng/mL Total Protein 7.1 (6.3-8.2) g/dL Albumin 4.3 (3.5-5.0) g/dL Globulin 2.8 (1.7-4.1) g/dL Albumin/Globulin Ratio 1.5 (1.0-2.8) Lipase 271 (23-300) U/L COVID-19 PCR (Negative) 11/09/20 11/09/20 Range/Units 13:48 14:40 WBC (4.5-11.0) X10^3/uL RBC (4.5-5.9) X10^6/uL Hgb (13.5-17.5) g/dL Hct (41-53) % MCV (80-100) fL MCH (26-34) PG MCHC (30-36) % RDW (11.6-14.8) % Plt Count (150-400) X10^3/uL Neut % (Auto) (50-75) % Lymph % (Auto) (25-40) % [place] % (Auto) (3-14) % Eos % (Auto) (2-4) % Baso % (Auto) (0-2) % Neut # (Auto) (7863-3356) /uL Lymph # (Auto) (6893-3305) /uL [place] # (Auto) (0-900) /uL Eos # (Auto) (0-450) /uL Baso # (Auto) (0-100) /uL PT (10.1-12.7) SECONDS INR (0.9-1.3) APTT (26.4-36.2) SECONDS Sodium (137-145) mmol/L Potassium (3.4-5.1) mmol/L Chloride (98-107) mmol/L Carbon Dioxide (22-32) mmol/L BUN (9-20) mg/dL Creatinine (0.66-1.25) mg/dL Estimated GFR (>60) mL/min BUN/Creatinine Ratio (6-22) Glucose (80-110) mg/dL Calcium (8.4-10.2) mg/dL Total Bilirubin (0.2-1.3) mg/dL AST (17-59) IU/L ALT (<50) IU/L Alkaline Phosphatase (38-126) U/L Total Creatine Kinase 230 H (55-170) U/L CK-MB (CK-2) 4.65 H (<2.37) ng/mL CK-MB (CK-2) Rel Index 2.0 (1.5-5.0) % Troponin I 0.225 H* (0.01-0.034) ng/mL Total Protein (6.3-8.2) g/dL Albumin (3.5-5.0) g/dL Globulin (1.7-4.1) g/dL Albumin/Globulin Ratio (1.0-2.8) Lipase (23-300) U/L COVID-19 PCR Negative (Negative) Imaging Data Chest x-ray: Radiologist's Impression: [address] [id number] ReportSigned Patient: Donavon Topete GMR#: [id number]: [id number]:[id number]/Sex: 70 / MDate of Service: 11/09/20Loc: EDAccession Number: [id number] Procedure: XR chest 1V Ordering Provider: Donavon Tang D.O. PROCEDURE: XR CHEST 1V INDICATIONS: chest pain TECHNIQUE: One view of the chest was acquired. COMPARISON: None. FINDINGS: Surgical changes and devices: None. Lungs and pleura: Cannot exclude medial right apical lung mass versus superimposition of vessels and 2 ribs. No airspace consolidation. Left basilar bronchiectasis. No pleural effusions or pneumothorax. Mediastinum: Mediastinal contours appear normal. Mild cardiomegaly. Bones and chest wall: No suspicious bony lesions. Overlying soft tissues appear unremarkable. IMPRESSION: 1. Mild cardiomegaly. 2. Question medial right apical lung mass versus superimposition of vascular structures and the anterior right 1st rib and posterior right 4th rib. Comment: Recommend noncontrast chest CT to exclude a medial right apical lung mass. Comment: Findings were discussed with Dr. Tang at the time of study dictation. Dictated by: Jluis Retana M.D. on 11/09/2020 at 10:55 Approved by: Jluis Retana M.D. on 11/09/2020 at 11:01 CT scan - chest: Radiologist's Impression: [address] [id number] Scan ReportSigned Patient: Donavon Topete GMR#: [id number]: 9Acct:[id number]/Sex: 70 / MDate of Service: 11/09/20Loc: EDAccession Number: [id number] Procedure: CT chest wo con Ordering Provider: Donavon Tang D.O. PROCEDURE: CT CHEST WO CON INDICATIONS: R sided mass CT requested by rads TECHNIQUE: Noncontrast 5 mm thick sections acquired from the pulmonary apices to the posterior costophrenic angles. 1 mm lung window, 5 mm thick coronal and sagittal and 7 mm axial MIP reformats were then acquired. For radiation dose reduction, the following was used: automated exposure control, adjustment of mA and/or kV according to patient size. COMPARISON: [facility], CT, CT ANGIO HEAD, 09/19/2020, 12:10. [facility], CR, XR CHEST 1V, 11/09/2020, 10:40. FINDINGS: Image quality: Excellent. Lungs and pleura: No acute air space opacities. Specifically, there is no abnormal finding at the right apex to correspond to the questionable abnormality on the plain film from earlier today. No pleural effusions or pneumothorax. Central and peripheral airways are patent and normal in caliber. Mediastinum: Heart size is normal. No pericardial effusion. A coronary artery stent is noted in addition to scattered atheromatous coronary artery calcifications. No mediastinal adenopathy by size criteria. Thoracic aorta and central pulmonary arteries are normal in size. Esophagus is normal in caliber. No hiatal hernia. Bones and chest wall: No suspicious bony lesions. No vertebral body compression fractures. No axillary or supraclavicular adenopathy by size criteria. Thyroid gland is unremarkable . Abdomen: Visualized upper abdominal solid organs and bowel loops appear normal in the absence of contrast. IMPRESSION: 1. No acute pulmonary findings. Questionable abnormality on the associated plain film likely represents overlapping bone and vascular shadows. 2. Coronary artery atherosclerosis. Dictated by: Leah Eaton M.D. on 11/09/2020 at 12:52 Approved by: Leah Eaton M.D. on 11/09/2020 at 13:02 ECG Data Attestation: I personally reviewed and interpreted this ECG as follows: Prior ECG tracings: not available for review Interpretation: Sinus rhythm Ventricular rate 86 Normal axis Normal QRS Normal QTC No ST T wave changes MDM Narrative Medical decision making narrative: Patient is chest pain-free and has been chest pain-free since arrival here in the ER. Has a normal EKG. Initial chest x-ray is concerning for right lung mass. The follow-up CT scan was ordered per Radiology recommendations which did not show any abnormality. Patient's initial troponin is elevated. This is in the setting of an individual who has had stents in the past many years ago however has a normal EKG in is chest pain-free and has a relatively atypical story for ACS. I did discuss the case with Dr. Aucna with cardiology who recommended repeating the troponin. He stated that if the troponin was the same Or elevated that he should be started on heparin and transferred for cardiac catheterization. Subsequent troponin was same as prior. He was given aspirin. Started on heparin. Discussed the case with Dr. carbajal with Internal Medicine it scheduled Hospital accepts the patient in transfer. I did discuss the situation of the need for transfer with the patient. He expressed understanding and agreement. Patient's current stable for transfer. Discharge Plan Departure Patient Disposition: [facility] Clinical Impression: Hypertension, Non-ST elevation [place] (NSTEMI) Prescriptions: No Action olmesartan [Benicar] 20 mg tablet 10 mg PO DAILY RF: 0 fenofibrate 54 mg tablet 54 mg PO DAILY Qty: 90 RF: 1 Testosterone (A) 20% gel 20 % TOP .COMPLEX Qty: 1 RF: 11 Referrals: Nelly Najera ARNP [Primary Care Provider] -
[2020-11-09 11:47] LABS: Troponin I 0.233 ng/mL (0.01-0.034)
[2020-11-09 14:03] LABS: Creatine Kinase 230 U/L (55-170)
[2020-11-09 14:18] LABS: Creatine Kinase MB 4.65 ng/mL (<2.37)
[2020-11-09 14:42] LABS: Troponin I 0.225 ng/mL (0.01-0.034)
[2020-11-09 15:09] LABS: COVID19 -Nasal RAPID Negative (Negative)
[2020-11-09] MEDS: ASPIRIN 81 MG CHEW TAB 324 MG PO (15:14)
[2020-11-09] MEDS: HEPARIN DRIP 25,000 UNIT/500 ML IV.SOLN 20 UNIT IV (15:15)
[2020-11-09] MEDS: HEPARIN 5,000 UNIT/ML VIAL 5000 UNIT IV (15:15)
--- NOTE | 2020-11-09 15:42 | PC.NURSE ---
Report given to YELITZA Will [facility]. Pt awaiting transport by [facility] to room 3019
--- NOTE | 2020-11-09 16:00 | PC.NURSE ---
ROBERT in ED to transport pt. handoff report given. Pt observed to be eating turkey sandwich brought by . advised to stop eating. Pt made NPO for impending cath.
== END 2020-11-09 16:05 | disposition short-term general hospital (02) ==
PROVIDERS: Emergency Provider Emergency Medicine; PCP Nurse Practitioner
DX: I21.4 Non-ST elevation (NSTEMI) myocardial infarction (principal); I11.0 Hypertensive heart disease with heart failure; I25.10 Atherosclerotic heart disease of native coronary artery without angina pectoris; M25.511 Pain in right shoulder; Z95.5 Presence of coronary angioplasty implant and graft; E78.5 Hyperlipidemia, unspecified
CPT/HCPCS: 36415; 71045; 71250; 80053; 82550; 82553; 83690; 84484; 85025; 85610; 85730; 87635; 93005; 93010; 96365; 96375; 99284; J1644

== ENCOUNTER → 2021-01-24 08:29 | Outpatient (CLI) | payer MEDICARE, SELFPAY ==
[2021-01-24 09:18] LABS: Alanine Aminotransferase 88 IU/L (<50); Albumin 4.4 g/dL (3.5-5.0); Albumin Globulin Ratio 1.7 (1.0-2.8); Alkaline Phosphatase 56 U/L (38-126); Aspartate Aminotransferase 57 IU/L (17-59); BUN Creatinine Ratio 21.6 (6-22); Bilirubin Total 0.9 mg/dL (0.2-1.3); Blood Urea Nitrogen 21 mg/dL (9-20); Calcium 10.2 mg/dL (8.4-10.2); Carbon Dioxide 26 mmol/L (22-32); Chloride 102 mmol/L (98-107); Estimated Glomerular Filt Rate > 60.0 mL/min (>60); Globulin 2.6 g/dL (1.7-4.1); Glucose 101 mg/dL (80-110); HEMOLYSIS < 15 (0-50); Potassium 3.9 mmol/L (3.4-5.1); Sodium 135 mmol/L (137-145)
[2021-01-31 15:12] LABS: LDL Particle SEE SEPARATE RESULTS
== END ==
PROVIDERS: PCP Nurse Practitioner; Referring Provider Specialist; Visit Provider Specialist
DX: E78.2 Mixed hyperlipidemia (principal); I25.10 Atherosclerotic heart disease of native coronary artery without angina pectoris
CPT/HCPCS: 36415; 80053; 80061; 83704

== ENCOUNTER → 2021-06-21 09:53 | Outpatient (CLI) | payer MEDICARE, SELFPAY ==
[2021-06-21 10:52] LABS: Add Manual Diff / Slide Review NO; Basophils Absolute Auto 100 /uL (0-100); Basophils Percent Auto 0.9 % (0-2); Eosinophils Absolute Auto 300 /uL (0-450); Eosinophils Percent Auto 3.9 % (2-4); Hematocrit 43.7 % (41-53); Hemoglobin 15.3 g/dL (13.5-17.5); Lymphocytes Absolute Auto 1900 /uL (1100-4500); Lymphocytes Percent Auto 29.2 % (25-40); Mean Corpuscular Hemoglobin 31.3 PG (26-34); Mean Corpuscular Volume 89.3 fL (80-100); Monocytes Absolute Auto 700 /uL (0-900); Monocytes Percent Auto 10.5 % (3-14); Neutrophils Absolute Auto 3600 /uL (1500-7000); Neutrophils Percent Auto 55.5 % (50-75); Platelet Count 186 X10^3/uL (150-400); Red Cell Distribution Width 12.8 % (11.6-14.8); White Blood Cell Count 6.4 X10^3/uL (4.5-11.0)
== END ==
PROVIDERS: PCP Nurse Practitioner; Referring Provider Nurse Practitioner; Visit Provider Nurse Practitioner
DX: D75.1 Secondary polycythemia (principal)
CPT/HCPCS: 36415; 85025

== ENCOUNTER → 2021-09-28 06:57 | Outpatient (CLI) | payer MEDICARE, SELFPAY ==
[2021-09-28 10:42] LABS: Alanine Aminotransferase 44 IU/L (<50); Albumin 4.5 g/dL (3.5-5.0); Alkaline Phosphatase 58 U/L (38-126); Aspartate Aminotransferase 40 IU/L (17-59); BUN Creatinine Ratio 18.1 (6-22); Blood Urea Nitrogen 17 mg/dL (9-20); Calcium 10.2 mg/dL (8.4-10.2); Carbon Dioxide 26 mmol/L (22-32); Chloride 100 mmol/L (98-107); Estimated Glomerular Filt Rate > 60.0 mL/min (>60); Globulin 2.3 g/dL (1.7-4.1); Glucose 106 mg/dL (80-110); HEMOLYSIS < 15 (0-50); Magnesium 1.9 mg/dL (1.6-2.3); Potassium 3.4 mmol/L (3.4-5.1); Sodium 137 mmol/L (137-145); Total Protein 6.8 g/dL (6.3-8.2)
[2021-09-30 15:11] LABS: Cholesterol, Total 116 mg/dL (100-199); HDL-Cholesterol 44 mg/dL (>39); HDL-Particle (Total) 33.5 umol/L (>=30.5); LDL Particle 781 nmol/L (<1000); LDL Size 20.2 nm (>20.5); LDL-Cholsterol 50 mg/dL (0-99); LP-IR Score 71 (<=45); Small LDL- Particle 434 nmol/L (<=527); Triglycerides 125 mg/dL (0-149)
== END ==
PROVIDERS: PCP Nurse Practitioner; Referring Provider Specialist; Visit Provider Specialist
DX: I10 Essential (primary) hypertension (principal); E78.2 Mixed hyperlipidemia; R94.5 Abnormal results of liver function studies
CPT/HCPCS: 36415; 80053; 80061; 83704; 83735

== ENCOUNTER → 2022-01-13 07:51 | Outpatient (CLI) | payer MEDICARE, SELFPAY ==
[2022-01-13 10:36] LABS: Alanine Aminotransferase 55 IU/L (<50); Albumin 4.5 g/dL (3.5-5.0); Albumin Globulin Ratio 1.8 (1.0-2.8); Alkaline Phosphatase 66 U/L (38-126); Aspartate Aminotransferase 54 IU/L (17-59); BUN Creatinine Ratio 15.6 (6-22); Blood Urea Nitrogen 14 mg/dL (9-20); Calcium 10.1 mg/dL (8.4-10.2); Carbon Dioxide 25 mmol/L (22-32); Chloride 108 mmol/L (98-107); Cholesterol 109 mg/dL (140-199); Estimated Glomerular Filt Rate > 60.0 mL/min (>60); Globulin 2.5 g/dL (1.7-4.1); Glucose 106 mg/dL (80-110); HDL Cholesterol 47 mg/dL (40-60); HEMOLYSIS < 15 (0-50); LDL Cholesterol Calculated 43 mg/dL (<100); Potassium 3.9 mmol/L (3.4-5.1); Sodium 138 mmol/L (137-145); Triglycerides 93 mg/dL (35-150)
[2022-01-13 10:44] LABS: Free T4, Direct Thyroxine 1.11 ng/dL (0.78-2.19)
[2022-01-13 10:57] LABS: Thyroid Stimulating Hormone 2.76 uIU/mL (0.47-4.68)
[2022-01-13 11:20] LABS: Creatinine Urine Random 91.4 mg/dL
[2022-01-13 11:39] LABS: Microalbumin Urine Random < 0.6 mg/dL (0-1.6)
== END ==
PROVIDERS: PCP Nurse Practitioner; Referring Provider Nurse Practitioner; Visit Provider Nurse Practitioner
DX: E78.5 Hyperlipidemia, unspecified (principal); D75.1 Secondary polycythemia; I10 Essential (primary) hypertension
CPT/HCPCS: 36415; 80053; 80061; 82043; 82570; 84439; 84443; 84481

== ENCOUNTER → 2022-04-10 09:32 | Outpatient (CLI) | payer MEDICARE, SELFPAY ==
[2022-04-10 11:05] LABS: Alanine Aminotransferase 49 IU/L (<50); Albumin 4.6 g/dL (3.5-5.0); Albumin Globulin Ratio 1.8 (1.0-2.8); Alkaline Phosphatase 67 U/L (38-126); Aspartate Aminotransferase 45 IU/L (17-59); BUN Creatinine Ratio 20.2 (6-22); Bilirubin Total 0.7 mg/dL (0.2-1.3); Blood Urea Nitrogen 17 mg/dL (9-20); Calcium 9.8 mg/dL (8.4-10.2); Carbon Dioxide 24 mmol/L (22-32); Chloride 106 mmol/L (98-107); Estimated Glomerular Filt Rate > 60 mL/min (>60); Globulin 2.5 g/dL (1.7-4.1); Glucose 95 mg/dL (80-110); HEMOLYSIS < 15 (0-50); Magnesium 2.1 mg/dL (1.6-2.3); Sodium 140 mmol/L (137-145); Total Protein 7.1 g/dL (6.3-8.2)
[2022-04-12 10:12] LABS: Cholesterol, Total 100 mg/dL (100-199); HDL-Cholesterol 39 mg/dL (>39); HDL-Particle (Total) 32.9 umol/L (>=30.5); LDL Particle 554 nmol/L (<1000); LDL-Cholsterol 39 mg/dL (0-99); LP-IR Score 45 (<=45); Small LDL- Particle 327 nmol/L (<=527); Triglycerides 122 mg/dL (0-149)
== END ==
PROVIDERS: PCP Nurse Practitioner; Referring Provider Specialist; Visit Provider Specialist
DX: I10 Essential (primary) hypertension (principal); E78.2 Mixed hyperlipidemia
CPT/HCPCS: 36415; 80053; 80061; 83704; 83735

== ENCOUNTER → 2022-09-28 07:56 | Outpatient (CLI) | payer MEDICARE, SELFPAY ==
--- NOTE | 2022-09-28 07:58 | DI.ECHO.S_ITS ---
[place] [facility]---------+ [facility] +---------+ : : [address] [place] : : : : [id number] : : : : Phone: [phone] Echocardiogram Report + + :Name: OSMEL GALVEZ Study Date: 09/28/2022 Height: 73 in : :[facility] ReadingLocation: Weight: 215 lb : : Gender: Male BSA: 2.2 m2 : :: 1950 Age: 72 yrs BP: 151/93 mmHg: :Reason For Study: RBBB : :Ordering Physician: SILVESTRE, : :[place] Performed By: Jacob Yu : :Referring: MARIETTA RIVERS : + + Interpretation Summary The left ventricle appears normal in size, wall thickness, and systolic function without any focal wall motion abnormalities with the ejection fraction estimated to be 60-65% and appears slightly more dynamic compared to the previous study. Diastolic parameters suggest probable normal left ventricular diastolic function and normal filling pressures. The right ventricle is not well visualized but appears borderline dilated with normal systolic function and appears unchanged compared to the previous study. Pulmonary artery pressures cannot be estimated because of the lack of a measurable TR jet velocity but the IVC suggests a CVP of around 3 mmHg. Both atria are normal in size. There is mild aortic valve sclerosis with mild aortic regurgitation but no other significant valvular heart disease. Procedure: A two-dimensional transthoracic echocardiogram with color flow and Doppler was performed. The study quality was technically difficult. Comparison is made with the echocardiogram of 11/10/2020. A contrast injection of Definity was performed to improve assessment of LV function. Left Ventricle: The left ventricle appears normal in size, wall thickness, and systolic function without any focal wall motion abnormalities. The ejection fraction is estimated to be 60-65%. This is slightly more dynamic compared to the previous study. Diastolic parameters suggest probable normal left ventricular diastolic function and normal filling pressures. Right Ventricle: The right ventricle is not well visualized. The right ventricle is borderline dilated. The right ventricular systolic function is normal. This is unchanged compared to the previous study. Atria: Both atria are normal in size. The interatrial septum grossly appears intact with no obvious evidence for an atrial septal defect. Mitral Valve: There is mild mitral annular calcification. The mitral valve leaflets appear borderline thickened, but open well. There is no mitral regurgitation noted. Aortic Valve: The aortic valve is trileaflet. The aortic valve is slightly calcified. There is mild aortic valve sclerosis. The aortic valve opens well. There is mild aortic regurgitation. Tricuspid Valve: The tricuspid valve is normal in structure and function. No tricuspid regurgitation. Pulmonary artery pressures cannot be estimated because of the lack of a measurable TR jet velocity but the IVC suggests a CVP of around 3 mmHg. Pulmonic Valve: The pulmonic valve is normal in structure and function. There is no pulmonic valvular regurgitation. There is no other significant valvular heart disease. Great Vessels: The aortic root is normal size. The dimensions of the ascending aorta are normal. The IVC is of normal diameter and collapses greater than 50% with a sniff. This suggests a low right atrial pressure of 3 mm Hg. Pericardium/ Pleura There is no pericardial effusion. There is no pleural effusion. MMode/2D Measurements & Calculations LVIDd: 4.9 cm LVOT diam: 2.2 cm LVIDs: 3.1 cm Ao root diam: 3.5 cm FS: 37.3 % asc Aorta Diam: 3.2 cm IVSd: 0.88 cm LVPWd: 0.77 cm LV fritz. diameter/BSA (cm/m^2): 2.2 LV sys. diameter/BSA (cm/m^2): 1.4 LA A2 area: 19.3 cm2 RA long axis: 5.3 cm LA A4 area: 15.4 cm2 RA area: 17.1 cm2 LA length (vol): 4.9 cm RA vol: 46.8 ml LA vol: 51.9 ml RA : 21.1 ml/m2 LA vol index: 23.4 ml/m2 Doppler Measurements & Calculations Ao V2 max: 116.1 cm/sec LVOT Max Robe: 119.0 cm/sec Ao V2 mean: 79.9 cm/sec LV V1 max P.7 mmHg Ao max P.4 mmHg LV V1 VTI: 22.7 cm Ao mean P.9 mmHg BLAYNE(I,D): 3.7 cm2 Ao V2 VTI: 22.5 cm BLAYNE(V,D): 3.8 cm2 sev ratio: 1.0 BLAYNE indexed to BSA (cm^2/m^2): 1.7 MV E max robe: 65.3 cm/sec SV(LVOT): 83.3 ml MV A max robe: 60.7 cm/sec MV E/A: 1.1 Med Peak E' Robe: 7.7 cm/sec E/E' med: 8.5 Lat Peak E' Robe: 6.4 cm/sec E/E' lat: 10.3 E/e' average: 9.4 MV dec time: 0.23 sec Reading Physician:07:51 AM
== END ==
PROVIDERS: PCP Nurse Practitioner; Referring Provider Specialist; Visit Provider Specialist
DX: I35.1 Nonrheumatic aortic (valve) insufficiency (principal); I45.10 Unspecified right bundle-branch block; I10 Essential (primary) hypertension
CPT/HCPCS: C8929; Q9957

== ENCOUNTER → 2022-10-05 07:34 | Outpatient (CLI) | payer MEDICARE, SELFPAY ==
[2022-10-05 09:01] LABS: Alanine Aminotransferase 48 IU/L (<50); Aspartate Aminotransferase 44 IU/L (17-59); BUN Creatinine Ratio 14.8 (6-22); Bilirubin Total 0.8 mg/dL (0.2-1.3); Blood Urea Nitrogen 13 mg/dL (9-20); Calcium 9.6 mg/dL (8.4-10.2); Carbon Dioxide 22 mmol/L (22-32); Chloride 104 mmol/L (98-107); Estimated Glomerular Filt Rate > 60 mL/min (>60); Glucose 102 mg/dL (80-110); HEMOLYSIS < 15 (0-50); Potassium 4.3 mmol/L (3.4-5.1); Sodium 139 mmol/L (137-145)
[2022-10-05 09:02] LABS: Albumin 4.4 g/dL (3.5-5.0); Albumin Globulin Ratio 1.8 (1.0-2.8); Alkaline Phosphatase 80 U/L (38-126); Globulin 2.4 g/dL (1.7-4.1); Total Protein 6.8 g/dL (6.3-8.2)
[2022-10-07 11:42] LABS: Cholesterol, Total 95 mg/dL (100-199); HDL-Cholesterol 41 mg/dL (>39); HDL-Particle (Total) 31.3 umol/L (>=30.5); LDL Particle 495 nmol/L (<1000); LDL Size 19.9 nm (>20.5); LDL-Cholsterol 35 mg/dL (0-99); LP-IR Score 64 (<=45); Small LDL- Particle 323 nmol/L (<=527); Triglycerides 97 mg/dL (0-149)
== END ==
PROVIDERS: PCP Nurse Practitioner; Referring Provider Specialist; Visit Provider Specialist
DX: E78.2 Mixed hyperlipidemia (principal)
CPT/HCPCS: 36415; 80053; 80061; 83704

== ENCOUNTER → 2023-07-02 06:59 | Outpatient (CLI) | payer MEDICARE, SELFPAY ==
[2023-07-02 07:55] LABS: Alanine Aminotransferase 53 IU/L (<50); Albumin 4.3 g/dL (3.5-5.0); Albumin Globulin Ratio 1.5 (1.0-2.8); Alkaline Phosphatase 76 U/L (38-126); Aspartate Aminotransferase 44 IU/L (17-59); BUN Creatinine Ratio 13.7 (6-22); Bilirubin Total 0.9 mg/dL (0.2-1.3); Blood Urea Nitrogen 13 mg/dL (9-20); Calcium 9.5 mg/dL (8.4-10.2); Carbon Dioxide 26 mmol/L (22-32); Chloride 103 mmol/L (98-107); Estimated Glomerular Filt Rate > 60 mL/min (>60); Globulin 2.9 g/dL (1.7-4.1); Glucose 97 mg/dL (80-110); HEMOLYSIS < 15 (0-50); Potassium 3.9 mmol/L (3.4-5.1); Sodium 138 mmol/L (137-145); Total Protein 7.2 g/dL (6.3-8.2)
[2023-07-04 17:08] LABS: Cholesterol, Total 135 mg/dL (100-199); HDL-Cholesterol 51 mg/dL (>39); HDL-Particle (Total) 37.7 umol/L (>=30.5); LDL Particle 751 nmol/L (<1000); LDL-Cholsterol 60 mg/dL (0-99); LP-IR Score 59 (<=45); Small LDL- Particle 554 nmol/L (<=527); Triglycerides 138 mg/dL (0-149)
== END ==
PROVIDERS: PCP Nurse Practitioner; Referring Provider Specialist; Visit Provider Specialist
DX: I10 Essential (primary) hypertension (principal); E78.2 Mixed hyperlipidemia
CPT/HCPCS: 36415; 80053; 80061; 83704; 83735

== ENCOUNTER → 2024-08-19 07:02 | Outpatient (CLI) | payer MEDICARE, SELFPAY ==
[2024-08-19 08:19] LABS: Add Manual Diff / Slide Review NO; Basophils Absolute Auto 100 /uL (0-100); Basophils Percent Auto 0.8 % (0-2); Eosinophils Absolute Auto 300 /uL (0-450); Eosinophils Percent Auto 4.3 % (2-4); Hematocrit 43.4 % (41-53); Hemoglobin 14.8 g/dL (13.5-17.5); Lymphocytes Absolute Auto 1600 /uL (1100-4500); Lymphocytes Percent Auto 22.6 % (25-40); Mean Corpuscular HGB Conc 34.2 % (30-36); Mean Corpuscular Hemoglobin 30.6 PG (26-34); Mean Corpuscular Volume 89.5 fL (80-100); Monocytes Absolute Auto 700 /uL (0-900); Monocytes Percent Auto 9.5 % (3-14); Neutrophils Absolute Auto 4400 /uL (1500-7000); Neutrophils Percent Auto 62.8 % (50-75); Platelet Count 209 X10^3/uL (150-400); Red Blood Cell Count 4.85 X10^6/uL (4.5-5.9); Red Cell Distribution Width 13.4 % (11.6-14.8); White Blood Cell Count 7.1 X10^3/uL (4.5-11.0)
[2024-08-19 09:04] LABS: Alanine Aminotransferase 55 IU/L (<50); Albumin 4.3 g/dL (3.5-5.0); Alkaline Phosphatase 75 U/L (38-126); Aspartate Aminotransferase 46 IU/L (17-59); BUN Creatinine Ratio 10.3 (6-22); Blood Urea Nitrogen 10 mg/dL (9-20); Calcium 10.3 mg/dL (8.4-10.2); Carbon Dioxide 25 mmol/L (22-32); Chloride 105 mmol/L (98-107); Cholesterol 110 mg/dL (140-199); Estimated Glomerular Filt Rate > 60 mL/min (>60); Globulin 2.2 g/dL (1.7-4.1); Glucose 116 mg/dL (80-110); HDL Cholesterol 49 mg/dL (40-60); HEMOLYSIS < 15 (0-50); LDL Cholesterol Calculated 38 mg/dL (<100); Potassium 4.6 mmol/L (3.4-5.1); Sodium 138 mmol/L (137-145); Total Protein 6.5 g/dL (6.3-8.2); Triglycerides 116 mg/dL (35-150)
[2024-08-19 09:20] LABS: Free T4, Direct Thyroxine 0.85 ng/dL (0.78-2.19)
[2024-08-19 09:21] LABS: Creatinine Urine Random 193.31 mg/dL
[2024-08-19 09:25] LABS: Microalbumin Urine Random 0.9 mg/dL (0-1.6)
[2024-08-19 09:32] LABS: Prostate Specific Antigen Scrn 0.868 ng/mL (0.1-4.0)
[2024-08-19 09:33] LABS: Thyroid Stimulating Hormone 3.26 uIU/mL (0.47-4.68)
[2024-08-19 09:44] LABS: Hep C Virus Ab w/Reflex Quant NEGATIVE s/c (NEGATIVE)
[2024-08-19 09:53] LABS: Vitamin B12 520 pg/mL (239-931)
[2024-08-21 14:36] LABS: Cholesterol, Total 107 mg/dL (100-199); HDL-Cholesterol 46 mg/dL (>39); HDL-Particle (Total) 36.4 umol/L (>=30.5); Historical Reading Comment: (.); LDL Particle 641 nmol/L (<1000); LDL Size 20.2 nm (>20.5); LDL-Cholsterol 40 mg/dL (0-99); LP-IR Score 62 (<=45); Small LDL- Particle 388 nmol/L (<=527); Triglycerides 117 mg/dL (0-149)
== END ==
PROVIDERS: PCP Nurse Practitioner; Referring Provider Specialist; Visit Provider Specialist
DX: E78.2 Mixed hyperlipidemia (principal); Z12.5 Encounter for screening for malignant neoplasm of prostate; E78.5 Hyperlipidemia, unspecified; I10 Essential (primary) hypertension; T45.525A Adverse effect of antithrombotic drugs, initial encounter; E78.00 Pure hypercholesterolemia, unspecified
CPT/HCPCS: 36415; 80053; 80061; 82043; 82570; 82607; 83704; 84439; 84443; 84481; 85025; 86803; G0103

== ENCOUNTER → 2025-07-13 07:13 | Outpatient (CLI) | payer MEDICARE, SELFPAY ==
[2025-07-13 08:21] LABS: Alanine Aminotransferase 54 IU/L (<50); Albumin 4.2 g/dL (3.5-5.0); Albumin Globulin Ratio 1.8 (1.0-2.8); Alkaline Phosphatase 68 U/L (38-126); Blood Urea Nitrogen 13 mg/dL (9-20); Calcium 9.8 mg/dL (8.4-10.2); Carbon Dioxide 23 mmol/L (22-32); Chloride 105 mmol/L (98-107); Estimated Glomerular Filt Rate > 60 mL/min (>60); Globulin 2.3 g/dL (1.7-4.1); Glucose 125 mg/dL (70-99); HEMOLYSIS < 15 (0-50); Magnesium 2.0 mg/dL (1.6-2.3); Potassium 4.2 mmol/L (3.4-5.1); Sodium 138 mmol/L (137-145); Total Protein 6.5 g/dL (6.3-8.2)
[2025-07-15 09:09] LABS: Cholesterol, Total 118 mg/dL (100-199); HDL-Particle (Total) 33.8 umol/L (>=30.5); Historical Reading Comment: (.); LDL Particle 697 nmol/L (<1000); LDL-Cholsterol 50 mg/dL (0-99); Small LDL- Particle 418 nmol/L (<=527); Triglycerides 132 mg/dL (0-149)
== END ==
PROVIDERS: PCP Family Medicine; Referring Provider Family Medicine; Visit Provider Specialist
DX: I10 Essential (primary) hypertension (principal); E78.2 Mixed hyperlipidemia
CPT/HCPCS: 36415; 80053; 80061; 83704; 83735